=== PATIENT | male | born 1965 | race Caucasian/White ===

== ENCOUNTER → 2020-06-28 08:59 | Outpatient (CLI) | payer OTHER, SELFPAY ==
--- NOTE | ~2020-06-28 | CT_ITS ---
EXAMINATION: CT soft tissue neck w con EXAM DATE: 06/28/2020 09:33 INDICATION: Chronic cough. Itching, irritation in throat. TECHNIQUE: Spiral CT of the neck was performed following intravenous injection of 75 mL Omnipaque 350 . Axial, coronal and sagittal images were reviewed. The dose-length product (DLP) for this examinat ion was 460.29 mGy-cm. The exposure was tailored according to patient size (auto mA exposure control ), and iterative reconstruction (ASIR) was used as additional dose reduction technique. There is no prior study for comparison. FINDINGS: The thyroid gland is unremarkable. The submandibular and parotid glands are symmetric. There is no cervical lymphadenopathy. There are no masses identified. The superior mediastinum is unremarkable. The airway is unremarkable. Parapharyngeal and pre-glottic fat planes are preserve d. The opacified vasculature is patent. There are calcifications along the posterior wall of the l eft globe, retina without any evidence of soft tissue. Bilateral cataract surgery. Mild left maxillar y sinus mucoperiosteal thickening and small amount of fluid. The mastoid air cells are well aerated. There is cervical spondylosis. There are no areas of abnormal enhancement on the post contrast im ages. IMPRESSION: 1. Symmetric, unremarkable airway. 2. Left retinal, posterior globe wall calcifications. Could correlate with ophthalmological exam. 3. Mild left maxillary sinus opacity. Reviewed, dictated and finalized at location A. IMPRESSION: 1. Symmetric, unremarkable airway. 2. Left retinal, posterior globe wall calcifications. Could correlate with oph thalmological exam. 3. Mild left maxillary sinus opacity.
[2020-06-28 09:25] LABS: Estimated Glomerular Filt Rate > 60
== END ==
PROVIDERS: Visit Provider Otolaryngology
DX: R05 Cough (principal)
CPT/HCPCS: 36415; 70491; Q9967

== ENCOUNTER → 2021-07-26 14:48 | Outpatient (CLI) | payer OTHER, SELFPAY ==
--- NOTE | ~2021-07-26 | XR_ITS ---
EXAMINATION: XR thoracic spine 2V DATE: 07/26/2021 16:07 INDICATION: Dorsalgia, unspecified. TECHNIQUE: 3 views of thoracic spine were obtained. COMPARISON: Chest 2 views 04/06/2016 FINDINGS: There is 4 degrees dextrocurvature of thoracic spine. Vertebral body heights are normal. Th ere is mild to moderately decreased disc height at multiple levels in mid thoracic spine. There are e ndplate osteophytes at most levels. IMPRESSION: 1. Moderate thoracic spondylosis. Reviewed, dictated and finalized at location A.
== END ==
PROVIDERS: PCP Family Medicine; Visit Provider Physician Assistant Medical
DX: M54.9 Dorsalgia, unspecified (principal); M47.814 Spondylosis without myelopathy or radiculopathy, thoracic region
CPT/HCPCS: 72070

== ENCOUNTER 2023-05-30 07:07 | Outpatient (CLI) | payer OTHER, SELFPAY ==
--- NOTE | ~2023-05-30 | CT_ITS ---
EXAMINATION: CT sinus wo con DATE: 05/30/2023 07:31 INDICATION: Deviated nasal septum. TECHNIQUE: Computed tomography (CT) of the paranasal sinuses was performed without intravenous contra st. Iterative reconstruction technique was employed. The dose-length product was 293.24 mGy-cm. COMPARISON: CT sinuses 11/27/13 FINDINGS: There is mild mucosal thickening in the frontal, bilateral ethmoid, and left maxillary sinu ses. The sphenoid and right maxillary sinuses are clear. There is leftward deviation of the nasal sep chitra. There is a Dwain cell on the right. The ostiomeatal units are patent. There are likely changes of ocular lens replacement surgeries. There is anteroposterior elongation of right ocular globe. Ther e are calcifications in left ocular globe. IMPRESSION: 1. Mild mucosal thickening in the paranasal sinuses. 2. Leftward deviation of the nasal septum. Reviewed, dictated and finalized at location A.
== END 2023-05-30 07:08 | disposition home or self-care (01) ==
PROVIDERS: PCP Family Medicine; Visit Provider Otolaryngology
DX: J34.2 Deviated nasal septum (principal)
CPT/HCPCS: 70486

== ENCOUNTER 2024-01-04 23:35 | Emergency (ER) | payer OTHER, SELFPAY ==
--- NOTE | ~2024-01-04 | CT_ITS ---
EXAMINATION: CT abdomen pelvis wo con DATE: 01/05/2024 06:06 INDICATION: Flank pain TECHNIQUE: Computed tomography (CT) of the abdomen and pelvis was performed without intravenous contr ast. The dose-length product (DLP) was 1356.86 mGy-cm. Automated exposure control and iterative recon struction technique were employed. COMPARISON: None FINDINGS: Minimal dependent atelectasis is present in the lung bases. The heart size is normal. The l iver, spleen, pancreas, gallbladder, and adrenal glands are normal. There is a 2.3 cm cyst of the lef t kidney upper pole. There is a 1.5 cm cyst of the right mid kidney. No stones are identified in the kidneys, ureters, or bladder. No hydronephrosis or hydroureter. There is mild circumferential wall th ickening of the urinary bladder with subtle adjacent fat stranding. No pathologically enlarged abdomi nal or pelvic lymph nodes are identified. No free intraperitoneal gas or evidence of bowel obstructio n. There is mild lumbar spondylosis. There is an umbilical hernia containing fat. IMPRESSION: 1. Mild wall thickening of the urinary bladder with adjacent fat stranding, probable cystitis. Reviewed, dictated and finalized at location F. [employer] IMPRESSION: 1. Mild wall thickening of the urinary bladder with adjacent fat stranding, pro bable cystitis.
[2024-01-04 23:56] VITALS: BP 116/88; PULSE 143; RESP 20; TEMP 36.5; O2SAT 97
[2024-01-05] VITALS (14 sets, daily range): BP systolic 115–148; BP diastolic 77–103; PULSE 113–130; RESP 13–22; O2SAT 95–100
[2024-01-05] MEDS: PROCHLORPERAZINE EDISYLATE 10 MG/2 ML VIAL IV PUSH (04:10)
[2024-01-05] MEDS: SODIUM CHLORIDE 0.9% IV 1,000 ML 999 ML IV CONT (04:10)
[2024-01-05 04:16] LABS: Basophils Absolute Auto 0.1 K/mm3 (0.0-0.1); Basophils Percent Auto 0.6 % (0.2-1.2); Eosinophils Absolute Auto 0.4 K/mm3 (0-0.3); Eosinophils Percent Auto 3.5 % (0-4.4); Hematocrit 47.3 % (42.0-52.0); Hemoglobin 14.6 g/dL (14.0-18.0); Immature Granulocyte Absolute 0.08 K/mm3 (0.00-0.031); Immature Granulocyte Percent A 0.7 % (0-0.5); Lymphocytes Absolute Auto 0.65 K/mm3 (0.9-3.2); Lymphocytes Percent Auto 5.4 % (18.3-44.2); Mean Corpuscular HGB Conc 30.9 g/dl (32-36); Mean Corpuscular Hemoglobin 28.5 pg (26-34); Mean Corpuscular Volume 92.2 fl (80-100); Mean Platelet Volume 10.6 fl (7.4-10.4); Monocytes Absolute Auto 0.9 K/mm3 (0.1-0.6); Neutrophils Percent Auto 82.8 % (45.5-73.1); Platelet Count Result 179 k/mm3 (150-375); Red Blood Count 5.13 M/mm3 (4.6-6.20); Red Cell Distribution Width 13.2 % (11.5-14.5); White Blood Count 12.1 K/mm3 (4.5-10.0)
[2024-01-05 04:22] LABS: Appearance Urine Turbid (Clear); Bilirubin Urine 2+ (Negative); Blood Urine 3+ (Negative); Color Urine Dark Yellow (Yellow); Glucose Urine UA Negative (Negative); Ketones Urine 2+ mg/dL (Negative); Leukocyte Esterase Ur 2+ LEU/UL (Negative); Nitrate Urine Positive (Negative); Protein Urine 2+ mg/dL (Negative); Specific Grav Ur 1.034 (1.001-1.035)
[2024-01-05 04:24] LABS: Squamous Epithelial Cell Urine Few /hpf (Few)
[2024-01-05 04:25] LABS: Add Urine Microscopic? YES
[2024-01-05 05:09] LABS: Alanine Aminotransferase 22 U/L (6-50); Albumin Level 3.9 g/dL (3.5-5.1); Alkaline Phosphatase 64 U/L (38-126); Anion Gap 13 mmol/L (8-16); Aspartate Amino Transferase 27 U/L (17-59); Bilirubin,Total 1.2 mg/dL (0.2-1.3); Blood Urea Nitrogen 23 mg/dL (9-20); Calcium 9.2 mg/dL (8.4-10.2); Carbon Dioxide 13 mmol/L (22-30); Chloride 116 mmol/L (98-107); Estimated CRCL calculation 66 ml/min; Estimated Glomerular Filt Rate 52; Glucose 113 mg/dL (65-110); Lipase 59 U/L (23-300); Magnesium 1.9 mg/dL (1.6-2.3); Potassium 3.7 mmol/L (3.4-5.0); Sodium 142 mmol/L (137-145)
[2024-01-05] MEDS: ONDANSETRON INJ 4 MG/2 ML VIAL IV PUSH (05:40)
--- NOTE | 2024-01-05 07:20 | ED.GENADULT ---
HPI - General Adult General Chief complaint: Nausea/Vomiting/Diarrhea Stated complaint: vomiting, uti, fever Time Seen by Provider: 01/05/24 03:31 History of Present Illness HPI narrative: with the patient 59-year-old gentleman who presents emergency department with chief complaint of abdominal pain nausea vomiting and fever. Patient reports he was recently diagnosed with the UTI but started having nausea and vomiting after eating too much while ago via. The patient reports that he was unable take the antibiotic reports he has been unable to keep anything down feels as though he is dehydrated. Related Data Home Medications Medication Instructions Recorded Confirmed lamotrigine 100 mg tablet 100 mg PO DAILY 03/12/23 11/30/23 lurasidone 20 mg tablet (Latuda) 20 mg PO DAILY 03/12/23 11/30/23 topiramate 50 mg tablet (Topamax) 100 mg PO BID 03/12/23 11/30/23 Allergies Allergy/AdvReac Type Severity Reaction Status Date / Time bupropion Allergy Unknown unknown Verified 11/30/23 08:22 Review of Systems Review of Systems: A 10 system review of systems was completed on the patient and is negative except for what is stated in the HPI. Nursing and ancillary documentation was reviewed. [facility] Past Medical History Medical History Adult BMI 38.0-38.9 kg/sq m Anxiety associated with depression BMI 31.0-31.9,adult BMI 37.0-37.9, adult BMI 39.0-39.9,adult BMI 40.0-44.9, adult Essential hypertension Grieving Moderate episode of recurrent major depressive disorder Sleep apnea in adult Testicular hypofunction Vitamin deficiency, unspecified Family History Family History Grandparent Cerebrovascular accident Other Family history of malignant neoplasm Social History Social History Smoking status: Never smoker Second hand tobacco smoke exposure: No Alcohol intake: former Substance use: never Substance use type: does not use Lack of Transportation: No Lack of Food: Never True Current Housing: I Have Housing Concerned About Future Housing: No Difficulty Paying Gas/Electric Bills: No Difficulty Paying for Meds: No Currently Unemployed: No Education: Master's Degree or Higher Difficulty w/ Childcare or Family Care: No Living arrangements: with family Additional living arrangements comments: Occupation/Education: retired Gender identity (if verbalized by the patient): Male Sexual Orientation (if Verbalized by the Patient): Straight or Heterosexual Spiritual care concerns: No Agree to blood products: Yes Exam Narrative: GENERAL: Well-appearing, well-nourished, and in no acute distress. HEAD: Normocephalic, atraumatic. EYES: PERRLA and EOMI. ENT: Nares clear, no rhinorrhea or epistaxis. Mucous membranes moist. NECK: Supple. CHEST: Clear to auscultation. No respiratory distress. HEART: Regular rate and rhythm. No murmur heard. Normal peripheral pulses. ABDOMEN: Soft, Diffuse mild tenderness, nondistended, normal active bowel sounds. EXTREMITIES: Normal range of motion. No edema. SKIN: Warm, dry, no rash. NEURO: No focal deficits. Alert and oriented x3. PSYCH: Normal mood and affect. Course Vital Signs Vital signs: Vital Signs Temperature 36.5 C 01/04/24 23:56 Pulse Rate 143 H 01/04/24 23:56 Respiratory Rate 20 01/04/24 23:56 Blood Pressure 116/88 01/04/24 23:56 Pulse Oximetry 97 01/04/24 23:56 Oxygen Delivery Room Air 01/04/24 23:56 Temperature 36.5 C 01/04/24 23:56 Pulse Rate 119 H 01/05/24 07:07 Respiratory Rate 18 01/05/24 07:07 Blood Pressure 148/90 H 01/05/24 07:07 Pulse Oximetry 98 01/05/24 07:07 Oxygen Delivery Room Air 01/04/24 23:56 Medical Decision Making MDM Narrative Medical decision making narrative: dif
--- NOTE | 2024-01-05 07:25 | PC.NURSE ---
Report to CARSON Ambrosio.
== END 2024-01-05 07:55 | disposition home or self-care (01) ==
PROVIDERS: Emergency Provider Emergency Medicine; PCP Family Medicine
DX: R11.2 Nausea with vomiting, unspecified (principal); R10.9 Unspecified abdominal pain; I10 Essential (primary) hypertension; E55.9 Vitamin D deficiency, unspecified; G47.30 Sleep apnea, unspecified; F41.8 Other specified anxiety disorders
CPT/HCPCS: 36415; 74176; 80053; 81001; 83690; 83735; 85025; 87077; 87086; 87186; 96361; 96374; 96375; 99284; J0780; J2405; J7030